=== PATIENT | female | born 1990 | race African-American/Black ===

== ENCOUNTER 2021-06-10 09:17 | Emergency (ER) | payer OTHER, SELFPAY ==
[2021-06-10 10:47] LABS: #Monocytes 0.8 10x3/uL (0.0-1.1); #Neutrophils 3.9 10x3/uL (1.5-8.4); %Eosinophils 0.3 % (0.0-6.0); %Neutrophils 59.4 % (40.0-75.0); Hemoglobin 11.8 g/dL (12.0-15.5); Mean Corpuscular HGB CONC 31.1 g/dL (32.0-36.0); Mean Corpuscular Hemoglobin 23.5 pg (27.0-33.0); Mean Corpuscular Volume 75.5 fl (81.6-98.3); Platelet Count 361 10x3/uL (150-450); RBC Distribution Width 14.7 % (11.5-14.5); Red Blood Cell (RBC) Count 5.03 10x6/uL (3.90-5.03); White Blood Cell (WBC) Count 6.6 10x3/uL (3.5-10.5)
[2021-06-10 10:48] LABS: Bilirubin 1+ (Negative); Blood, Urine 10 (Negative); Clarity Cloudy (Clear); Glucose, Urine (Dipstick) Normal (Negative); Ketone, Urine 150 mg/dL (Negative); Leukocyte 25 (Negative); Nitrite Negative (Negative); Protein, Urine (Dipstick) 100 mg/dl (Neg-Trace); Specific Gravity, Urine 1.025 (1.002-1.036)
[2021-06-10 10:54] LABS: Bacteria/HPF 1+ HPF (None Seen); WBC/HPF 0-3 HPF (0-3)
[2021-06-10 10:55] LABS: Mucous/LPF 2+ LPF (<2+)
[2021-06-10 10:58] LABS: ALT (SGPT) 40 U/L (8-55); AST (SGOT) 29 U/L (5-34); Albumin 3.9 g/dL (3.5-5.0); Alkaline Phosphatase 67 U/L (40-110); Anion Gap 14 mmol/L (10-20); BUN (Urea Nitrogen) 6 mg/dL (7.0-18.7); Bilirubin, Total 0.2 mg/dL (0.2-1.2); Calc. Creatinine Clearance 0 mL/min (70-130); Calcium 8.8 mg/dL (7.8-10.44); Carbon Dioxide 19 mmol/L (22-29); Chloride 105 mmol/L (98-107); Globulin 4.1 g/dL (2.4-3.5); Glucose 83 mg/dL (70-105); Lipase 8 U/L (8-78); Potassium 3.6 mmol/L (3.5-5.1); Sodium 134 mmol/L (136-145)
[2021-06-10] MEDS ORDERED: Loperamide HCl 2 MG CAP ONE (11:18)
[2021-06-10] MEDS ORDERED: Ondansetron PF 4 MG/2 ML Vial ONE (11:18)
[2021-06-10 13:06] LABS: Actual Bicarbonate (HCO3v) 17 mEq/L (22-28); Base Excess -9.1 mEq/L (-2.0 to +3.0); Calcium, Ionized (venous) 1.18 mmol/L (1.16-1.32); Chloride (VBG) 104 mmol/L (98-106); Hemoglobin (Hb) 12.2 g/dL (11.7-15.5); Puncture Site Other Site; Sodium 127.9 mmol/L (133-146); pH (venous) 7.27 (7.32-7.43)
== END 2021-06-10 12:26 | disposition home or self-care (01) ==
LOC: CSHERS 09:17
DX: O21.9 Vomiting of pregnancy, unspecified (principal); Z3A.14 14 weeks gestation of pregnancy
CPT/HCPCS: 36415; 80053; 81003; 81015; 82010; 82805; 83690; 85025; 96374; J2405

== ENCOUNTER 2021-09-12 10:48 | Outpatient (CLI) | payer OTHER ==
[2021-09-12 20:42] LABS: SARS-CoV-2 PCR by NAA Not Detected (NotDetected)
== END 2021-09-12 10:49 | disposition home or self-care (01) ==
LOC: CSHLAB 10:48
PROVIDERS: ATTEND Family Medicine
DX: Z20.822 Contact with and (suspected) exposure to COVID-19 (principal)
CPT/HCPCS: U0003; U0005

== ENCOUNTER 2021-09-15 08:02 | Day surgery (SDC) | payer OTHER ==
[2021-09-15] MEDS ORDERED: diphenhydrAMINE 50 MG/ML VIAL ONE (08:38)
[2021-09-15 08:55] VITALS: BMI 42.0
[2021-09-15] MEDS ORDERED: Acetaminophen 500 MG TAB PO SCH (09:00)
[2021-09-15] MEDS ORDERED: hydrALAZINE 20 MG/ML VIAL SLOW IVP PRN (09:33)
[2021-09-15] MEDS ORDERED: Iron Sucrose Complex 500 MG in Sodium Chloride 0.9% 250 ML 250 ML IVPB SCH (11:00)
== END 2021-09-15 13:30 | disposition home health service (06) ==
LOC: CSHLD/OP 08:02
PROVIDERS: ATTEND Family Medicine
DX: O99.013 Anemia complicating pregnancy, third trimester (principal); O99.213 Obesity complicating pregnancy, third trimester; O36.63X0 Maternal care for excessive fetal growth, third trimester, not applicable or unspecified; O10.913 Unspecified pre-existing hypertension complicating pregnancy, third trimester; Z3A.28 28 weeks gestation of pregnancy; Z79.82 Long term (current) use of aspirin; Z79.899 Other long term (current) drug therapy; Z88.8 Allergy status to other drugs, medicaments and biological substances
CPT/HCPCS: J1200; J1756; J7050

== ENCOUNTER 2021-11-22 08:57 | Outpatient (CLI) | payer OTHER | END 2021-11-22 08:58 | disposition home or self-care (01) | LOC: CSHLAB 08:57 | PROVIDERS: ATTEND Emergency Medicine | DX: Z20.822 Contact with and (suspected) exposure to COVID-19 (principal) | CPT/HCPCS: 87811 ==

== ENCOUNTER 2021-11-26 19:00 | Inpatient (IN) | payer OTHER ==
[~2021-11-26 19:00] MED LIST: Bupivacaine 0.25% HCL 30 ML VIAL ONE; Bupivacaine HCl 0.5%/Epinephrine 1:200,000/PF 30 ml Vial ONE; ePHEDrine Sulfate 50 MG/10 ML VIAL ONE
[2021-11-26] MEDS ORDERED: Lidocaine 1% (PF) 30 ML VIAL SC PRN (22:51)
[2021-11-26] MEDS ORDERED: Ondansetron PF 4 MG/2 ML Vial IVP PRN (22:51)
[2021-11-26] MEDS ORDERED: hydrALAZINE 20 MG/ML VIAL SLOW IVP PRN (22:51)
[2021-11-26] MEDS ORDERED: Ibuprofen 800 MG TAB PO PRN (22:51)
[2021-11-26] MEDS ORDERED: Promethazine HCl 25 MG/ML VIAL IM PRN (22:51)
[2021-11-26] MEDS ORDERED: NS w/ Oxytocin 30 units 500 ML IV SCH (23:00)
[2021-11-26] MEDS ORDERED: Misoprostol 100 MCG TAB VAG SCH (23:00)
[2021-11-26 23:19] VITALS: BMI 41.8
[2021-11-27] LABS: Hemoglobin 10.6 g/dL (12.0-15.5); Mean Corpuscular HGB CONC 31.2 g/dL (32.0-36.0); Mean Corpuscular Hemoglobin 23.3 pg (27.0-33.0); Mean Corpuscular Volume 74.9 fl (81.6-98.3); Mean Platelet Volume 9.5 fl (7.4-10.4); Platelet Count 397 10x3/uL (150-450); RBC Distribution Width 15.2 % (11.5-14.5); Red Blood Cell (RBC) Count 4.54 10x6/uL (3.90-5.03); White Blood Cell (WBC) Count 13.1 10x3/uL (3.5-10.5)
[2021-11-27 00:43] LABS: Hep B Surf Ag Non-Reactive S/CO (NonReactive)
[2021-11-27 00:44] LABS: Syphilis Antibody Nonreactive (Nonreactive); Syphilis Antibody Index 0.07 S/CO (<1.00 Non-Reactive)
[2021-11-27 01:08] LABS: HBSAg Index 0.23 S/CO (0-0.99)
[2021-11-27] MEDS ORDERED: Misoprostol 100 MCG TAB VAG SCH (03:00)
[2021-11-27] MEDS ORDERED: diphenhydrAMINE 50 MG/ML VIAL IVP PRN (18:35)
[2021-11-27] MEDS ORDERED: Diphenoxylate HCl/Atropine Tablet PO PRN ×2 (18:37)
[2021-11-27] MEDS ORDERED: HYDROcodone/Acetaminophen 5/325 mg Tablet PO PRN ×2 (18:37)
[2021-11-27] MEDS ORDERED: Misoprostol 200 MCG TAB PR PRN (18:37)
[2021-11-27] MEDS ORDERED: Carboprost 250 MCG/ML AMP IM PRN (18:37)
[2021-11-27] MEDS: Acetaminophen 500 MG TAB PO PRN (19:19)
[2021-11-27 19:40] LABS: Hemoglobin 11.2 g/dL (12.0-15.5); Mean Corpuscular HGB CONC 31.2 g/dL (32.0-36.0); Mean Corpuscular Hemoglobin 23.4 pg (27.0-33.0); Mean Corpuscular Volume 74.9 fl (81.6-98.3); Mean Platelet Volume 9.5 fl (7.4-10.4); Platelet Count 399 10x3/uL (150-450); Red Blood Cell (RBC) Count 4.79 10x6/uL (3.90-5.03); White Blood Cell (WBC) Count 11.9 10x3/uL (3.5-10.5)
[2021-11-27 19:51] LABS: ALT (SGPT) 17 U/L (8-55); AST (SGOT) 15 U/L (5-34); Albumin 3.1 g/dL (3.5-5.0); Alkaline Phosphatase 139 U/L (40-110); Anion Gap 12 mmol/L (10-20); BUN (Urea Nitrogen) 5 mg/dL (7.0-18.7); Bilirubin, Total 0.4 mg/dL (0.2-1.2); Calc. Creatinine Clearance 301 mL/min (70-130); Calcium 8.9 mg/dL (7.8-10.44); Carbon Dioxide 23 mmol/L (22-29); Chloride 105 mmol/L (98-107); Estimated GFR 121; Globulin 4.2 g/dL (2.4-3.5); Glucose 69 mg/dL (70-105); Potassium 3.7 mmol/L (3.5-5.1); Protein, Total 7.3 g/dL (6.0-8.3); Sodium 136 mmol/L (136-145)
[2021-11-27 21:03] LABS: Creatinine, Urine 54.07 mg/dL (47-110); Protein, Urine Random Quant Less than 10 mg/dL (1-14)
[2021-11-27] MEDS ORDERED: Metoclopramide HCl 10 MG/2 ML VIAL IVP SCH (22:00)
[2021-11-28] MEDS: Fentanyl 100 MCG/2 ML VIAL SLOW IVP PRN ×2 (04:18→06:38)
[2021-11-28] MEDS ORDERED: Fentanyl 2 mcg/Bup 0.1% Cadd 100 ML ONE ×2 (08:43→17:14)
[2021-11-28] MEDS ORDERED: Moisturizing Cream (Eucerin) 113 GM JAR TOP PRN ×2 (09:22→20:49)
[2021-11-28] MEDS ORDERED: Naloxone HCl 0.4 mg/ml Vial IVP PRN ×4 (09:22→20:49)
[2021-11-28] MEDS ORDERED: diphenhydrAMINE 50 MG/ML VIAL IVP PRN (09:22)
[2021-11-28] MEDS ORDERED: Lactated Ringer's 500 ML IV PRN (09:22)
[2021-11-28] MEDS ORDERED: Ondansetron PF 4 MG/2 ML Vial IVP PRN ×3 (09:22→23:21)
[2021-11-28] MEDS ORDERED: ePHEDrine Sulfate 50 MG/10 ML VIAL SLOW IVP PRN (09:22)
[2021-11-28] MEDS ORDERED: Acetaminophen 325 MG TAB PO PRN ×2 (09:22→23:21)
[2021-11-28] MEDS ORDERED: Promethazine HCl 25 MG/ML VIAL IM PRN ×3 (09:22→23:21)
[2021-11-28] MEDS ORDERED: Fentanyl 2 mcg/Bupivacaine 0.1% Cassette 100 ML EPIDURAL SCH (09:30)
[2021-11-28] MEDS ORDERED: Communication Order-Pharmacy FS SCH ×2 (09:30→21:00)
[2021-11-28] MEDS ORDERED: Labetalol HCl 100 MG/20 ML VIAL SLOW IVP PRN ×3 (18:07)
[2021-11-28] MEDS ORDERED: hydrALAZINE 20 MG/ML VIAL SLOW IVP PRN ×2 (18:07→23:21)
[2021-11-28] MEDS ORDERED: Labetalol HCl 100 MG/20 ML VIAL ONE (18:10)
[2021-11-28] MEDS ORDERED: Famotidine/PF 20 mg/2ml Vial SLOW IVP PRN (18:11)
[2021-11-28] MEDS ORDERED: Bicitra 30 ML UDCUP PO PRN (18:11)
[2021-11-28] MEDS ORDERED: Azithromycin 500 MG in Sodium Chloride 0.9% 250 ML 250 ML IVPB SCH (18:15)
[2021-11-28] MEDS ORDERED: CEFAZOLIN 2 GM in Sodium Chloride 0.9% 100 ML IVPB SCH (18:15)
[2021-11-28] MEDS ORDERED: CEFAZOLIN 2 GM VIAL ONE (18:22)
[2021-11-28] MEDS ORDERED: Azithromycin 500 MG VIAL ONE (18:22)
[2021-11-28] MEDS ORDERED: Dexamethasone 4 mg/ml Vial ONE (18:37)
[2021-11-28] MEDS ORDERED: Ondansetron PF 4 MG/2 ML Vial ONE (18:37)
[2021-11-28] MEDS ORDERED: Morphine PF 10 MG/10 ML VIAL ONE (18:37)
[2021-11-28] MEDS ORDERED: Oxytocin 10 UNITS/ML VIAL ONE ×2 (18:38→19:36)
[2021-11-28] MEDS ORDERED: PHENYLEPHRINE-NS 100 MCG/ML 10 ML SYRINGE ONE (19:05)
[2021-11-28] MEDS ORDERED: Tranexamic Acid 1,000 MG/10 ML VIAL ONE (19:24)
[2021-11-28 19:36] LABS: pH (Cord, venous) 7.174 (7.250-7.350)
[2021-11-28] MEDS: Acetaminophen 500 MG TAB PO PRN (20:48)
[2021-11-28] MEDS ORDERED: Meperidine HCl/PF 25 MG/ML VIAL SLOW IVP PRN (20:49)
[2021-11-28] MEDS ORDERED: Fentanyl 100 MCG/2 ML VIAL SLOW IVP PRN (20:49)
[2021-11-28] MEDS ORDERED: Ketorolac Tromethamine 30 MG/ML VIAL IVP PRN (20:49)
[2021-11-28] MEDS ORDERED: Promethazine HCl 25 MG SUPP PR PRN (20:49)
[2021-11-28] MEDS ORDERED: HYDROmorphone 2 MG/ML VIAL SLOW IVP PRN (20:49)
[2021-11-28] MEDS ORDERED: Ondansetron HCl/PF 4 MG/2 ML Vial IVP PRN (20:49)
[2021-11-28] MEDS ORDERED: Naloxone HCl 0.4 mg/ml Vial IV PRN (20:49)
[2021-11-28] MEDS ORDERED: Ketorolac Tromethamine 30 MG/ML VIAL IVP SCH (21:00)
[2021-11-28] MEDS ORDERED: Misoprostol 200 MCG TAB PR PRN (23:21)
[2021-11-28] MEDS ORDERED: Boostrix 0.5 ML (Tdap) VIAL IM ONE (23:21)
[2021-11-28] MEDS ORDERED: NS w/ Oxytocin 30 units 500 ML IV SCH (23:21)
[2021-11-28] MEDS ORDERED: Simethicone Chewable 80 MG TAB PO PRN (23:21)
[2021-11-28] MEDS ORDERED: Ferrous Sulfate 325 MG TAB PO SCH (23:45)
[2021-11-28] MEDS ORDERED: Docusate 100 MG CAP PO SCH (23:45)
[2021-11-29] MEDS: Lactated Ringer's 1,000 ML IV SCH ×2 (04:58→21:17)
[2021-11-29 06:06] LABS: Hemoglobin 9.7 g/dL (12.0-15.5); Mean Corpuscular Hemoglobin 23.4 pg (27.0-33.0); Mean Corpuscular Volume 73.2 fl (81.6-98.3); Mean Platelet Volume 9.4 fl (7.4-10.4); Platelet Count 335 10x3/uL (150-450); RBC Distribution Width 15.2 % (11.5-14.5); Red Blood Cell (RBC) Count 4.14 10x6/uL (3.90-5.03); White Blood Cell (WBC) Count 22.1 10x3/uL (3.5-10.5)
[2021-11-29] MEDS ORDERED: HYDROcodone/Acetaminophen 5/325 mg Tablet PO PRN ×2 (09:00)
[2021-11-29] MEDS: Docusate 100 MG CAP PO SCH ×2 (09:17→21:51)
[2021-11-29] MEDS: Prenatal Vitamin 1 TAB PO SCH (09:17)
[2021-11-29] MEDS: Ferrous Sulfate 325 MG TAB PO SCH ×2 (09:17→21:51)
[2021-11-29] MEDS: Ibuprofen 800 MG TAB PO SCH (18:11)
[2021-11-30] MEDS: Lactated Ringer's 1,000 ML IV SCH (02:02)
[2021-11-30] MEDS: Ibuprofen 800 MG TAB PO SCH ×2 (02:03→10:50)
[2021-11-30 08:13] VITALS: BP 130/60; TEMP 98.1
[2021-11-30] MEDS: Prenatal Vitamin 1 TAB PO SCH ×2 (10:01→10:51)
[2021-11-30] MEDS: Ferrous Sulfate 325 MG TAB PO SCH (10:02)
[2021-11-30] MEDS: Docusate 100 MG CAP PO SCH (10:02)
== END 2021-11-30 15:00 | disposition home or self-care (01) | DRG 787 ==
LOC: CSHLD 22:28 → CSHPP 11-29 10:45
PROVIDERS: ADMIT Student in an Organized Health Care Education/Training Program; ATTEND Student in an Organized Health Care Education/Training Program
PROC: 3E033VJ Introduction of Other Hormone into Peripheral Vein, Percutaneous Approach (ICD-10-PCS; 2021-11-26)
PROC: 3E0P7VZ Introduction of Hormone into Female Reproductive, Via Natural or Artificial Opening (ICD-10-PCS; 2021-11-26)
PROC: 10D00Z1 Extraction of Products of Conception, Low, Open Approach (ICD-10-PCS; principal; 2021-11-28)
PROC: 10907ZC Drainage of Amniotic Fluid, Therapeutic from Products of Conception, Via Natural or Artificial Opening (ICD-10-PCS; 2021-11-28)
PROC: 10H07YZ Insertion of Other Device into Products of Conception, Via Natural or Artificial Opening (ICD-10-PCS; 2021-11-28)
DX: O10.92 Unspecified pre-existing hypertension complicating childbirth (principal); O72.1 Other immediate postpartum hemorrhage; O99.43 Diseases of the circulatory system complicating the puerperium; Z3A.38 38 weeks gestation of pregnancy; Z37.0 Single live birth; Z20.822 Contact with and (suspected) exposure to COVID-19; O76 Abnormality in fetal heart rate and rhythm complicating labor and delivery; D50.9 Iron deficiency anemia, unspecified; O99.02 Anemia complicating childbirth; E66.9 Obesity, unspecified; O99.214 Obesity complicating childbirth; O36.63X0 Maternal care for excessive fetal growth, third trimester, not applicable or unspecified; Z79.82 Long term (current) use of aspirin; Z79.899 Other long term (current) drug therapy; Z88.8 Allergy status to other drugs, medicaments and biological substances; I95.9 Hypotension, unspecified; R00.1 Bradycardia, unspecified; O99.892 Other specified diseases and conditions complicating childbirth; O62.1 Secondary uterine inertia; O33.9 Maternal care for disproportion, unspecified; O32.8XX0 Maternal care for other malpresentation of fetus, not applicable or unspecified
CPT/HCPCS: 36415; 51702; 80053; 82570; 82805; 84156; 85027; 86780; 86850; 86900; 86901; 87340; J0595; J1100; J1885; J2274; J2405; J2590; J3010; J7120; S0020